=== PATIENT | male | born 1940 | race Caucasian/White ===

== ENCOUNTER 2021-05-07 21:24 | Emergency (ER) | payer MEDICARE, OTHER ==
--- NOTE | 2021-05-08 00:48 | EDM.PDOC ---
ED HPI GENERAL MEDICAL PROBLEM - General Chief Complaint: General Stated Complaint: SWOLLEN HEMORRHOIDS Time Seen by Provider: 05/08/21 00:43 Source of Information: Reports: Patient History Limitations: Reports: No Limitations - History of Present Illness INITIAL COMMENTS - FREE TEXT/NARRATIVE: Patient is a 80-year-old male who is complaining having some rectal pain that was present yesterday but has gotten worse today. He feels this is due to having a hemorrhoid. Patient has had some hemorrhoids in the past. He denies any rectal bleeding. He feels he has some pressure in the area after having a bowel movement. He states his GI doctor has done some banding of hemorrhoids in the past. He has picked up some Preparation H but has not attempted to use it tonight. He denies any abdominal pain any nausea or vomiting. Patient states he has regular diarrhea but today has had a firmer stool. He denies any fever or chills. Onset: Today Duration: Getting Worse Location: Reports: Pelvis Rectal Pain Score (Numeric/FACES): 4 - Related Data Allergies Allergy/AdvReac Type Severity Reaction Status Date / Time No Known Allergies Allergy Verified 05/07/21 22:42 Home Meds: Home Meds . 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 ED EXAM, GENERAL - Physical Exam Exam: See Below Exam Limited By: No Limitations General Appearance: Alert, No Apparent Distress Neck: Normal Inspection, Supple Respiratory/Chest: No Respiratory Distress GI/Abdominal: Normal Bowel Sounds, Soft, Non-Tender, No Distention Rectal (Males) Exam: Normal Exam, Tenderness. No: Hemorrhoids, Mass, Perirectal Abscess Extremities: Normal Inspection Neurological: Alert, Oriented Psychiatric: Normal Affect Skin Exam: Warm, Dry Lymphatic: No Adenopathy Course - Vital Signs Last Recorded V/S: Last Vital Signs Temp 96.5 F L 05/07/21 22:33 Pulse 61 05/07/21 22:33 Resp 20 05/07/21 22:33 BP 171/95 H 05/07/21 22:33 Pulse Ox 100 05/07/21 22:33 Departure - Departure Time of Disposition: 00:47 Disposition: Home, Self-Care 01 Condition: Good Clinical Impression: Rectal pain - Discharge Information Instructions: Proctitis Referrals: PCP,Not In Area [Primary Care Provider] - Additional Instructions: Follow-up with your GI doctor or surgeon this week for recheck and further work- up for your current symptoms unless they have resolved. Return to ER symptoms are worse. Mag citrate tomorrow if your at home to clean out your GI tract. You need to be scoped as soon as possible to rule out any cancer or infection. Sepsis Event Note (ED) - Evaluation Sepsis Screening Result: No Definite Risk - Focused Exam Vital Signs: Vital Signs Temp Pulse Resp BP Pulse Ox 05/07/21 22:33 96.5 F L 61 20 171/95 H 100
== END 2021-05-08 01:03 | disposition home or self-care (01) ==
LOC: JD.ED 21:24
DX: K62.89 Other specified diseases of anus and rectum (principal); Z87.891 Personal history of nicotine dependence
CPT/HCPCS: 99282; 99283